=== PATIENT | male | born 1985 | race Caucasian/White ===

== ENCOUNTER 2017-05-08 13:12 | Emergency (ER) | payer OTHER ==
--- NOTE | 2017-05-08 20:34 | RAD ---
LEFT SHOULDER TWO VIEWS: 05/08/17 No fracture, dislocation, or AC joint widening was seen. There are no periarticular calcifications. IMPRESSION: No acute finding. POS: HOME
== END 2017-05-08 14:12 | disposition home or self-care (01) ==
LOC: BURERS 13:12
DX: S46.002A Unspecified injury of muscle(s) and tendon(s) of the rotator cuff of left shoulder, initial encounter (principal); S00.12XA Contusion of left eyelid and periocular area, initial encounter; Y04.0XXA Assault by unarmed brawl or fight, initial encounter; F90.9 Attention-deficit hyperactivity disorder, unspecified type